=== PATIENT | female | born 1990 | race Caucasian/White ===

== ENCOUNTER 2017-02-25 13:40 | Emergency (ER) | payer OTHER ==
[~2017-02-25] VITALS: Ht 162.6 cm; Wt 70.9 kg
[2017-02-25] MEDS ORDERED: PERCOCET 5/31 TABLET PO (16:18)
[2017-02-25 17:44] VITALS: BP 125/86
== END 2017-02-25 17:44 | disposition home or self-care (01) ==
LOC: EME 13:40
DX: S82.52XA Displaced fracture of medial malleolus of left tibia, initial encounter for closed fracture (principal); S91.312A Laceration without foreign body, left foot, initial encounter; S86.912A Strain of unspecified muscle(s) and tendon(s) at lower leg level, left leg, initial encounter; V23.5XXA Motorcycle passenger injured in collision with car, pick-up truck or van in traffic accident, initial encounter; Y92.410 Unspecified street and highway as the place of occurrence of the external cause; Z23 Encounter for immunization
CPT/HCPCS: 73564; 73610; 99281; 99285